=== PATIENT | male | born 2005 | race Two or more races ===

== ENCOUNTER → 2025-01-29 | Outpatient (CLI) | payer MEDICAID, SELFPAY ==
--- NOTE | 2025-01-29 15:25 | XR_ITS ---
Examination: PA lateral chest 2 views Technique: Upright PA lateral chest 2 views Date and time: January 29, 2025, 1548 hrs., Comparison August 22, 2017 Indications: Shortness of breath beginning one week ago. Findings: Significant thoracic dextroscoliosis thoracolumbar levoscoliosis thoracolumbar kyphosis Normal heart size Marked elevation right hemidiaphragm Mild prominence pulmonary vasculature. No lobar pneumonia or pulmonary edema Prominent osteopenia Impression: No lobar pneumonia or pulmonary edema.
== END | disposition home or self-care (01) ==
PROVIDERS: PCP Nurse Practitioner Family; Referring Provider Internal Medicine Critical Care Medicine; Visit Provider Internal Medicine Critical Care Medicine
DX: G80.0 Spastic quadriplegic cerebral palsy (principal); J45.40 Moderate persistent asthma, uncomplicated; R09.02 Hypoxemia
CPT/HCPCS: 71046